=== PATIENT | female | born 1970 | race Caucasian/White ===

== ENCOUNTER 2020-01-18 06:45 | Emergency (ER) | payer BC ==
--- NOTE | 2020-01-18 07:20 | ERPHSYRPT ---
- History of Present Illness Time Seen by Provider: 01/18/20 07:18 Patient Subjective Stated Complaint: Patient states " I felt bad for several weeks now. States she has had a cough forever and feels weak. States she went to [facility] in Nov. and was DX with Strep Throat. Patient states she feels like her chest is just full and it feels worse when she lays down." Triage Nursing Assessment: Patient arrived to ER with . Patient A/O times 4. Patient answers questions appropriatley. Central color WNL. 02 sat upon arrival 99% RA. Cap refill < 3 seconds. Patient denies SOB or chest pain. No respiratory distress noted. Lungs with air movement but diminished throughout A/P. No wheezes or crackles heard. No dependent edema noted. Patient denies N/V. Patient denies loose stools. Patient states her appetite is poor. States fluid intake is normal. Oral mucosa clean, moist. No S/S of dehydration noted. Patient denies pain or discomfort. + BS times 4 quads. ABD soft round non -distended. Denies pain upon palpitation. Patient noted she has a productive cough with thick white yellowish sputum. Physician History: Location: chest Quality: cough, mild SOB, no chest pain Radiation: none Severity: mild Duration: one month Timing: gradual Modifying factors/associated signs and symptoms: Patient has been on multiple rounds of steroids from her PCP. She is now seen her PCP. No antibiotics. Patient denies smoking. No known coronavirus contacts. Thumbs have been constant for 1 month. Allergies/Adverse Reactions: No Known Drug Allergies Allergy (Unverified 01/18/20 07:17) Home Medications: Guaifenesin/Codeine Phos [Guaiatussin AC Liquid] 5 ml PO Q6HPRN PRN 01/18/20 [ History] Ipratropium/Albuterol Sulfate [Iprat-Albut 0.5-3(2.5) mg/3 ml] 3 ml NEB Q4HPRN PRN 01/18/20 [History] Multivitamin [Multi-Vitamin Daily] 1 inh PO DAILY 01/18/20 [History] Prednisone 20 mg [Deltasone 20 mg] 40 mg PO DAILY 01/18/20 [History] Hx Tetanus, Diphtheria Vaccination/Date Given: No Hx Influenza Vaccination/Date Given: No Hx Pneumococcal Vaccination/Date Given: No Immunizations Up to Date: Yes Travel Risk - International Travel Have you traveled outside of the country in past 3 weeks: No Have you or anyone close to you been diagnosed with or: No Do your reside in a community with a known COVID-19 case?: Yes If Yes where:: [facility] - Coronavirus Screening Has patient experienced Coronavirus symptoms: Yes Symptoms experienced: respiratory symptoms (i.e.Cought,shortness of breath) - Review of Systems Constitutional: No Fever, No Chills Eyes: No Symptoms Ears, Nose, & Throat: No Symptoms Respiratory: Cough, No Dyspnea Cardiac: No Chest Pain, No Edema, No Syncope Abdominal/Gastrointestinal: No Abdominal Pain, No Nausea, No Vomiting, No Diarrhea Genitourinary Symptoms: No Dysuria Musculoskeletal: No Back Pain, No Neck Pain Skin: No Rash Neurological: No Dizziness, No Focal Weakness, No Sensory Changes Psychological: No Symptoms Endocrine: No Symptoms All Other Systems: Reviewed and Negative - Past Medical History Pertinent Past Medical History: No Neurological History: No Pertinent History ENT History: No Pertinent History Cardiac History: No Pertinent History Respiratory History: No Pertinent History Endocrine Medical History: No Pertinent History Musculoskeletal History: No Pertinent History GI Medical History: Gallbladder Disease History: No Pertinent History Psycho-Social History: No Pertinent History Female Reproductive Disorders: No Pertinent History - Past Surgical History Past Surgical History: Yes Neuro Surgical History: No Pertinent History Cardiac: No Pertinent History Respiratory: No Pertinent History Gastrointestinal: Cholecystectomy Genitourinary: No Pertinent History Musculoskeletal: No Pertinent History Female Surgical History: No Pertinent History - Social History Smoking Status: Never smoker Exposure to second hand smoke: No Drug Use: none Patient Lives Alone: No - Female History Hx Last Menstrual Period: POST Hx Now: No - Nursing Vital Signs Nursing Vital Signs: Initial Vital Signs Temperature 98.6 F 01/18/20 06:55 Pulse Rate 100 H 01/18/20 06:55 Respiratory Rate 18 01/18/20 06:55 Blood Pressure 165/98 01/18/20 06:55 O2 Sat by Pulse Oximetry 99 01/18/20 06:55 Pain Scale Pain Intensity 0 - Physical Exam General Appearance: no apparent distress, alert Eye Exam: PERRL/EOMI, eyes nml inspection Ears, Nose, Throat Exam: normal ENT inspection, TMs normal, pharynx normal, moist mucous membranes Neck Exam: normal inspection, non-tender, supple, full range of motion Respiratory Exam: normal breath sounds, lungs clear, other (Normal breath sounds , no wheezing, 99% on room air. No tachypnea, crackles, signs or symptoms of respiratory distress.), No respiratory distress Cardiovascular Exam: regular rate/rhythm, normal heart sounds Gastrointestinal/Abdomen Exam: soft, No tenderness Back Exam: normal inspection, No CVA tenderness, No vertebral tenderness Extremity Exam: normal inspection, normal range of motion Neurologic Exam: alert, oriented x 3, cooperative, normal mood/affect, sensation nml, No motor deficits Skin Exam: normal color, warm, dry, No rash Lymphatic Exam: No adenopathy SpO2: 99 Ordered Tests: Active Orders 24 hr Category Date Time Status EKG-ER Only STAT Care 01/18/20 07:37 Active CHEST 2 VIEWS (PA AND LAT) Stat Exams 01/18/20 07:37 Completed - Progress Progress: improved Air Movement: good Progress Note: 01/18/20 07:52 We will obtain a chest x-ray and screening EKG. Patient's symptoms and history appear more in line with chronic bronchitis. However, we will screen for any STEMI, arrhythmias. Chest x-ray looking for pneumonia. 01/18/20 08:45 Chest x-ray shows no pneumonia my read. Patient feeling improved here in the emergency department. EKG shows no STEMI, other arrhythmias, other ischemic changes. At this point time will discharge patient home. Close follow-up with PCP. Reexam in 24 to 40 hours. Return here for any new or changing symptoms. - Departure Departure Disposition: Home Clinical Impression: Acute bronchitis Condition: Stable Critical Care Time: No Referrals: Ashley REVELES [Primary Care Provider] - Instructions: Cough, Adult (DC)
[2020-01-18 08:01] VITALS: PULSE 89
--- NOTE | 2020-01-18 08:15 | XRAY ---
Indication: Short of breath and cough. Comparison: January 02, 2017. AP/lateral chest again demonstrates normal heart and lungs with a few incidental tiny calcified granulomas. Bony thorax intact. No new/acute findings.
[2020-01-18 08:47] VITALS: O2SAT 99
[2020-01-18 09:14] VITALS: BP 146/80
== END 2020-01-18 09:14 | disposition home or self-care (01) ==
LOC: ED 06:45
DX: J20.9 Acute bronchitis, unspecified (principal)
CPT/HCPCS: 71046; 93005; 99284